=== PATIENT | male | born 1990 | race Two or more races ===

== ENCOUNTER 2022-05-27 13:30 | Emergency (ER) | payer SELFPAY ==
--- NOTE | ~2022-05-27 | XR_ITS ---
EXAMINATION: XR HAND, LEFT CLINICAL INFORMATION: Middle finger laceration. Question foreign body COMPARISON: None TECHNIQUE: PA, lateral, and oblique views of the left hand. FINDINGS: No fracture or dislocation. Soft tissue laceration along the radial palmar aspect of the third proximal phalanx. No radiodense foreign body is identified. Joint spaces throughout the hand and wrist are maintained. XR/XR hand LT 2V IMPRESSION: 1. No acute osseous injury. No radiodense foreign body identified.
[2022-05-27 13:33] VITALS: BP 158/82; PULSE 100; RESP 18; TEMP 36.7; O2SAT 99; BMI 30.9
--- NOTE | 2022-05-27 16:42 | ED_ITS ---
HPI - Wound/Laceration General Chief Complaint: Wound/Laceration Stated Complaint: Finger lac Time Seen by Provider: 05/27/22 15:49 Source: patient Mode of arrival: ambulatory Limitations: no limitations History of Present Illness HPI narrative: Patient presents emergency department for evaluation of a laceration to the left middle finger. He states that he accidentally cut his finger with a kitchen knife. Bleeding is actively controlled. Denies numbness or tingling to the digit. Is able to move the finger. Although it is painful. denies up-to-date tetanus vaccine. patient is right-hand dominant Related Data Previous Rx's Medication Instructions Recorded cephalexin 500 mg capsule 500 mg PO QID 7 days #28 caps 05/27/22 Allergies Allergy/AdvReac Type Severity Reaction Status Date / Time No Known Allergies Allergy Unverified 06/08/20 18:14 Review of Systems Review of Systems: skin: Positive laceration Yes all other systems are reviewed and are negative PMFSH Past Medical History Attestation statement: The following information was validated with the patient. Source: old records reviewed Medical History (Updated 05/27/22 @ 17:55 by Stephy Roy RN) Asthma Social History Social History Advance Directives: No Advance Directives Information Provided: No Physical Exam Vital Signs: Vital Signs: Last Vital Signs Temp 98.0 F 05/27/22 13:33 Pulse 100 05/27/22 13:33 Resp 18 05/27/22 13:33 BP 158/82 H 05/27/22 13:33 Pulse Ox 99 05/27/22 13:33 O2 Del Method 05/27/22 13:33 BMI result Body Mass Index 30.9 Appearance: Alert.?Oriented to person, place and time. No acute distress.?Normal affect.?? Neck: Normal inspection.? Neck supple.?? CVS: Heart sounds normal. Normal heart rate and rhythm.? Pulses normal.?? Respiratory: No respiratory distress.? Lung sounds clear to auscultation bilaterally?? Abdomen: Soft and non-tender. Skin: Skin warm and dry.? Normal skin color.? 4cm linear laceration to the medial/ palmar aspect of the left 3rd digit. flexion and extension intact to the digit Extremities: No lower extremity edema.? Neuro: Moves all extremities spontaneously. Sensation intact bilaterally. No motor deficits. Ambulates with normal steady gait. Course Course Course Narrative: patient is a 40-year-old male with no significant past medical history presents emergency department for evaluation of a finger laceration. XR reveals no acute fracture, dislocation, or retained foreign bodies. lidocaine was used to form digital block, Laceration was cleansed extensively with normal saline, repaired with 6 5-0 sutures, patient tolerated the procedure well. Digit is neurovascularly intact distally. No active bleeding. Tetanus vaccine updated. Will discharge home with instructions on keeping the area clean, worrisome signs and symptoms return back to the emergency department for, including signs of infection, given a prescription for cephalexin, sutures will need to be removed in 8-10 days. Patient verbalized understanding, was discharged home in stable condition. [facility] - Wound/Laceration Medical Records Attestation: I reviewed the patient's medical records. Imaging Data hand XR: Radiologist's impression: XR/XR hand LT 2V IMPRESSION: ? 1. No acute osseous injury. No radiodense foreign body identified. Procedures Laceration Laceration 1: Site: hand Side (If applicable): left Size (cm): 4 Description: linear Depth: simple, single layer Local Anesthetic: lidocaine 1% Amount of anesthesia used (mL): 4 Pre-repair: wound explored, irrigated extensively and deep structures intact Skin layer closed with: nylon Size (cm): 5-0 Number of sutures: 6 Technique: simple, interrupted Discharge Plan Discharge Clinical Impression: Laceration Patient Disposition: Home, Self-Care Instructions: Finger Laceration (ED) Additional Instructions: your tetanus shot was updated today. 6 stitches were placed to your finger, these will need to be removed in 8-10 days; This may be done with your primary care provider or by returning to the emergency department. if you develop worsening pain, redness, swelling, pus-like drainage, fevers, chills, inability to move your finger you should have this re-evaluated follow-up with your primary care provider as needed. Prescriptions: New cephalexin 500 mg capsule 500 mg PO QID 7 Days Qty: 28 0RF Referrals: Evelyn Neely MD [Primary Care Provider] -
[2022-05-27] MEDS: Lidocaine HCl 1 % MPF 2 ML VIAL 4 ML INFILTRATI (17:34)
[2022-05-27] MEDS: Diphth,Pertus(ACell),Tet Adult 0.5 ML SYRINGE IM (17:54)
--- NOTE | 2022-05-27 17:55 | PC.NURSE ---
patient a&ox3, pt medicated per order, pt was sutured by provider, denies pain at this time, will continue to monitor
== END 2022-05-27 17:58 | disposition home or self-care (01) ==
PROVIDERS: Emergency Provider Emergency Medicine; PCP Internal Medicine
DX: S61.213A Laceration without foreign body of left middle finger without damage to nail, initial encounter (principal); W26.0XXA Contact with knife, initial encounter; Y93.9 Activity, unspecified; Y92.010 Kitchen of single-family (private) house as the place of occurrence of the external cause; Y99.9 Unspecified external cause status
CPT/HCPCS: 12042; 73120; 90471; 90715; 99282; 99284

== ENCOUNTER 2022-06-13 07:57 | Emergency (ER) | payer SELFPAY ==
[2022-06-13 07:59] VITALS: BP 129/75; PULSE 84; RESP 18; TEMP 36.4; O2SAT 96
--- NOTE | 2022-06-13 10:10 | ED.WOUNDLAC ---
HPI - Wound/Laceration General Chief Complaint: Wound/Laceration Stated Complaint: Suture Removal Time Seen by Provider: 06/13/22 08:28 Source: patient Mode of arrival: ambulatory Limitations: no limitations History of Present Illness HPI narrative: Patient presents emergency department for suture removal. Patient sustained a laceration to the left middle finger 17 days ago, 05/27/2022, and had 6 sutures placed. When asked why patient did not return after 8-10 days he states that he thought the wound was still healing therefore he waited to have the sutures removed. Completed his course of antibiotics. Denies fevers, chills, redness, swelling, drainage, inability to move the finger, numbness or tingling to the finger. Related Data Previous Rx's Medication Instructions Recorded cephalexin 500 mg capsule 500 mg PO QID 7 days #28 caps 05/27/22 Allergies Allergy/AdvReac Type Severity Reaction Status Date / Time No Known Allergies Allergy Unverified 06/08/20 18:14 Review of Systems Review of Systems: Skin: Sutured old laceration to left middle finger Yes all other systems are reviewed and are negative [facility] Past Medical History Attestation statement: The following information was validated with the patient. Source: old records reviewed Medical History Asthma Social History Social History Advance Directives: No Advance Directives Information Provided: Yes Physical Exam Vital Signs: Vital Signs: Last Vital Signs Temp 97.6 F 06/13/22 07:59 Pulse 84 06/13/22 07:59 Resp 18 06/13/22 07:59 BP 129/75 06/13/22 07:59 Pulse Ox 96 06/13/22 07:59 O2 Del Method 06/13/22 07:59 BMI result Body Mass Index 30.0 Appearance: Alert.?Oriented to person, place and time. No acute distress.?Normal affect. Neck: Normal inspection.? Neck supple.?? CVS: Heart sounds normal. Normal heart rate and rhythm.? Pulses normal.?? Respiratory: No respiratory distress.? Lung sounds clear to auscultation bilaterally?? Abdomen: Soft and non-tender. Skin: Skin warm and dry.? Normal skin color.? Left middle finger with [address], laceration healed, no erythema, swelling, warmth, drainage. Extremities: No lower extremity edema.? Neuro: Moves all extremities spontaneously. Sensation intact bilaterally. Ambulates with normal steady gait. Course Course Course Narrative: Patient is a 32-year-old male who presents emergency department for suture removal. Laceration sustained on 06/06/2022 advised to return for suture removal in 8-10 days. However patient felt the wound was still healing therefore he waited until today, 17 days after initial suturing. Laceration is well healed, no evidence of infection. Six sutures were removed without complication. [facility] - Wound/Laceration Medical Records Attestation: I reviewed the patient's medical records. Discharge Plan Discharge Clinical Impression: Laceration Patient Disposition: Home, Self-Care Additional Instructions: Sutures were removed from your finger. No evidence of infection. Return to emergency department at any time for any new or concerning symptoms Prescriptions: No Action cephalexin 500 mg capsule 500 mg PO QID 7 Days Qty: 28 0RF
== END 2022-06-13 10:58 | disposition home or self-care (01) ==
PROVIDERS: Emergency Provider Emergency Medicine; PCP Internal Medicine
DX: Z48.02 Encounter for removal of sutures (principal)
CPT/HCPCS: 99282; 99283